=== PATIENT | female | born 1960 | race Two or more races ===

== ENCOUNTER 2020-08-17 03:58 | Emergency (ER) | payer OTHER ==
[2020-08-17 04:14] VITALS: PULSE 74; TEMP 97.4; BMI 31.8
[2020-08-17 04:43] VITALS: BP 160/78
[2020-08-17 05:40] LABS: URINE APPEARANCE TURBID; URINE BILIRUBIN SMALL (NEGATIVE); URINE COLOR RED; URINE GLUCOSE (UA) NEGATIVE (NEGATIVE); URINE KETONE NEGATIVE (NEGATIVE); URINE PROTEIN 100 (NEGATIVE)
[2020-08-17 05:41] LABS: HYALINE CASTS 244.03 /uL (0-3.1); URINE BACTERIA 1336.4 /uL (0-1359); URINE LEUK ESTERASE 3+ (NEGATIVE); URINE NITRITE POSITIVE (NEGATIVE); URINE RBC 33056.3 /uL (0-23.9)
[2020-08-17 05:42] LABS: URINE WBC 3089.4 /uL (0-25.8)
[2020-08-17] MEDS ORDERED: CIPROFLOXACIN 500 MG TABLET (RESTRICTED TO ID) PO ONE (06:18)
[2020-08-17] MEDS ORDERED: CIPROFLOXACIN 250 MG TABLET (RESTRICTED TO ID) PO ONE (06:20)
== END 2020-08-17 06:25 | disposition home or self-care (01) ==
LOC: FER 03:58
DX: N39.0 Urinary tract infection, site not specified (principal)
CPT/HCPCS: 81003; 87086; 87186; 99283-25

== ENCOUNTER 2021-06-25 08:43 | Inpatient (IN) | payer OTHER ==
[2021-06-25] MEDS ORDERED: ACETAMINOPHEN 1000 MG/100 ML VIAL IVPB ONE (09:27)
[2021-06-25] MEDS ORDERED: ACETAMINOPHEN INJECTION 100 ML IVPB ONE (09:33)
[2021-06-25 09:59] LABS: BASO % 3.1 % (0-2.0); BILIRUBIN,TOTAL 0.7 mg/dl (0.2-1); CALCIUM 9.5 mg/dl (8.5-10); CREATININE 0.7 mg/dl (0.55-1.3); EOS % 0.4 % (0-4.5); HEMATOCRIT 34.8 % (32.4-45.2); HEMOGLOBIN 11.4 GM/dl (10.7-15.3); LYMPH % 8.2 % (8-40); MCH 28.7 pg (25.7-33.7); MCHC 32.9 g/dl (32.0-36.0); MEAN CELL VOLUME 87.3 fl (80-96); MEAN PLT VOLUME 9.9 fl (7.5-11.1); MONO % 3.9 % (3.8-10.2); NEUT % 84.4 % (42.8-82.8); PLATELET COUNT 298 10^3/uL (134-434); RBC 3.98 M/mm3 (3.60-5.2); RDW 12.5 % (11.6-15.6); WHITE BLOOD COUNT 11.3 K/mm3 (4.0-10.8)
[2021-06-25] MEDS ORDERED: morphine CARPU-JECT 2 MG/1 ML DISP.SYRIN IVPUSH ONE (10:03)
[2021-06-25] MEDS ORDERED: morphine SULFATE 4 MG/ML VIAL ONE ×4 (10:05→16:06)
[2021-06-25] MEDS ORDERED: ONDANSETRON 4 MG/2 ML VIAL IVPUSH ONE (11:14)
[2021-06-25] MEDS ORDERED: morphine CARPU-JECT 4 MG/1 ML DISP.SYRIN IVPUSH ONE ×3 (11:15→15:51)
[2021-06-25] MEDS ORDERED: ONDANSETRON 4 MG/2 ML VIAL ONE (11:16)
[2021-06-25] MEDS ORDERED: MEROPENEM 1 GM in DEXTROSE 5%-WATER 100 ML IVPB ONE (12:30)
[2021-06-25] MEDS ORDERED: BISACODYL 10 MG SUPP.RECT PR ONE (18:19)
[2021-06-25] MEDS ORDERED: ACETAMINOPHEN 1000 MG/100 ML VIAL IVPB PRN (18:21)
[2021-06-25] MEDS: ENOXAPARIN NA (PORCINE) 40 MG/0.4 ML DISP.SYRIN SQ SCH (19:00)
[2021-06-25] MEDS: HYDROmorphone HCl 2 MG/ML VIAL IVPUSH PRN (19:00)
[2021-06-25] MEDS: SODIUM CHLORIDE 0.9%/KCL 20 MEQ/1,000 ML INFUS.BAG IV SCH (21:00)
[2021-06-25] MEDS ORDERED: ROSUVASTATIN CA 10 MG TABLET (FP) PO SCH (22:00)
[2021-06-25] MEDS: INSULIN (NOVOLOG) ASPART 100 UNITS/ML 10ML VIAL SQ SCH (22:03)
[2021-06-26] MEDS: HYDROmorphone HCl 2 MG/ML VIAL IVPUSH PRN (02:11)
[2021-06-26] MEDS: INSULIN (NOVOLOG) ASPART 100 UNITS/ML 10ML VIAL SQ SCH ×4 (06:06→21:17)
[2021-06-26 09:23] LABS: HEMATOCRIT 43.9 % (32.4-45.2); HEMOGLOBIN 14.4 GM/dL (10.7-15.3); MCH 28.5 pg (25.7-33.7); MCHC 32.8 g/dl (32.0-36.0); MEAN CELL VOLUME 87.1 fl (80-96); MEAN PLT VOLUME 9.6 fl (7.5-11.1); PLATELET COUNT 365 10^3/uL (134-434); RBC 5.04 M/mm3 (3.60-5.2); RDW 14.1 % (11.6-15.6); WHITE BLOOD COUNT 17.7 K/mm3 (4.0-10.0)
[2021-06-26 10:02] LABS: BILIRUBIN,TOTAL 0.9 mg/dL (0.2-1); TOT PROT 6.8 g/dl (6.4-8.2)
[2021-06-26 10:04] LABS: ALBUMIN 3.4 g/dl (3.4-5.0); BLOOD UREA NITROGEN 23.8 mg/dL (7-18); CALCIUM 9.4 mg/dL (8.5-10.1)
[2021-06-26 10:25] LABS: ANISOCYTOSIS 0; MACROCYTOSIS 0; PLATELET ESTIMATE NORMAL
[2021-06-26] MEDS: HYDROmorphone HCl 2 MG/ML VIAL IVPB PRN ×2 (12:06→21:41)
[2021-06-26] MEDS: ENOXAPARIN NA (PORCINE) 40 MG/0.4 ML DISP.SYRIN SQ SCH (12:11)
[2021-06-26] MEDS: SODIUM CHLORIDE 0.9%/KCL 20 MEQ/1,000 ML INFUS.BAG IV SCH (12:11)
[2021-06-26] MEDS: LACTATED RINGERS SOLUTION 1,000 ML/1,000 ML INFUS.BAG IV SCH (15:58)
[2021-06-26] MEDS ORDERED: DEXTROSE 5%-WATER 100 ML IVPB ONE (17:33)
[2021-06-26] MEDS ORDERED: MEROPENEM 1 GM VIAL (RESTRICTED TO ID) IVPB ONE (17:33)
[2021-06-26] MEDS: MEROPENEM 1 GM in DEXTROSE 5%-WATER 100 ML IVPB SCH (18:32)
[2021-06-26] MEDS ORDERED: ONDANSETRON 4 MG/2 ML VIAL IVPUSH ONE (18:50)
[2021-06-26 20:43] LABS: HEMATOCRIT 37.6 % (32.4-45.2); HEMOGLOBIN 12.5 GM/dL (10.7-15.3); MCH 28.6 pg (25.7-33.7); MCHC 33.1 g/dl (32.0-36.0); MEAN CELL VOLUME 86.5 fl (80-96); MEAN PLT VOLUME 8.9 fl (7.5-11.1); PLATELET COUNT 305 10^3/uL (134-434); RBC 4.35 M/mm3 (3.60-5.2); RDW 13.7 % (11.6-15.6); WHITE BLOOD COUNT 22.2 K/mm3 (4.0-10.0)
[2021-06-26 21:00] LABS: CALCIUM 8.7 mg/dL (8.5-10.1)
[2021-06-26 21:01] LABS: BLOOD UREA NITROGEN 25.6 mg/dL (7-18)
[2021-06-26 21:04] LABS: CREATININE 0.8 mg/dL (0.55-1.3)
[2021-06-26 21:05] LABS: BILIRUBIN,TOTAL 0.6 mg/dL (0.2-1); TOT PROT 6.2 g/dl (6.4-8.2)
[2021-06-27] MEDS ORDERED: DEXTROSE 5%-WATER 100 ML IVPB ONE ×3 (01:27→17:24)
[2021-06-27] MEDS ORDERED: MEROPENEM 1 GM VIAL (RESTRICTED TO ID) IVPB ONE ×3 (01:27→17:24)
[2021-06-27] MEDS: MEROPENEM 1 GM in DEXTROSE 5%-WATER 100 ML IVPB SCH ×3 (01:54→17:38)
[2021-06-27] MEDS: LACTATED RINGERS SOLUTION 1,000 ML/1,000 ML INFUS.BAG IV SCH ×2 (05:28→13:07)
[2021-06-27] MEDS: HYDROmorphone HCl 2 MG/ML VIAL IVPB PRN ×3 (06:29→21:16)
[2021-06-27] MEDS: INSULIN (NOVOLOG) ASPART 100 UNITS/ML 10ML VIAL SQ SCH ×4 (06:34→21:12)
[2021-06-27 09:44] LABS: HEMATOCRIT 34.6 % (32.4-45.2); HEMOGLOBIN 11.5 GM/dL (10.7-15.3); MCHC 33.2 g/dl (32.0-36.0); MEAN CELL VOLUME 87.1 fl (80-96); MEAN PLT VOLUME 9.5 fl (7.5-11.1); PLATELET COUNT 279 10^3/uL (134-434); RBC 3.98 M/mm3 (3.60-5.2); RDW 13.7 % (11.6-15.6); WHITE BLOOD COUNT 21.6 K/mm3 (4.0-10.0)
[2021-06-27 09:46] LABS: INR 1.34 (0.83-1.09); PROTHROMBIN TIME (PATIENT) 15.1 SEC (9.7-13.0)
[2021-06-27 10:26] LABS: BLOOD UREA NITROGEN 23.8 mg/dL (7-18)
[2021-06-27 10:28] LABS: CREATININE 0.7 mg/dL (0.55-1.3)
[2021-06-27 10:29] LABS: BILIRUBIN,TOTAL 0.7 mg/dL (0.2-1); TOT PROT 5.9 g/dl (6.4-8.2)
[2021-06-27] MEDS: ENOXAPARIN NA (PORCINE) 40 MG/0.4 ML DISP.SYRIN SQ SCH (10:38)
[2021-06-27 10:52] LABS: ANISOCYTOSIS 1+; MACROCYTOSIS 0; PLATELET ESTIMATE NORMAL
[2021-06-27 11:36] LABS: ALBUMIN 2.6 g/dl (3.4-5.0)
[2021-06-27] MEDS ORDERED: PHYTONADIONE 10 MG/1 ML AMP IVPB ONE (13:00)
[2021-06-27] MEDS ORDERED: ACETAMINOPHEN 1000 MG/100 ML VIAL IVPB ONE (13:00)
[2021-06-28] MEDS ORDERED: MEROPENEM 1 GM VIAL (RESTRICTED TO ID) IVPB ONE ×3 (00:50→18:25)
[2021-06-28] MEDS ORDERED: DEXTROSE 5%-WATER 100 ML IVPB ONE ×3 (00:50→18:25)
[2021-06-28] MEDS: LACTATED RINGERS SOLUTION 1,000 ML/1,000 ML INFUS.BAG IV SCH ×3 (01:00→23:37)
[2021-06-28] MEDS: MEROPENEM 1 GM in DEXTROSE 5%-WATER 100 ML IVPB SCH ×3 (02:00→18:37)
[2021-06-28] MEDS: HYDROmorphone HCl 2 MG/ML VIAL IVPB PRN ×4 (02:42→20:23)
[2021-06-28] MEDS: INSULIN (NOVOLOG) ASPART 100 UNITS/ML 10ML VIAL SQ SCH ×4 (05:59→21:14)
[2021-06-28 09:11] LABS: BASO % 0.1 % (0-2.0); EOS % 0.1 % (0-4.5); HEMATOCRIT 29.6 % (32.4-45.2); LYMPH % 5.8 % (8-40); MCH 29.4 pg (25.7-33.7); MCHC 33.7 g/dl (32.0-36.0); MEAN CELL VOLUME 87.3 fl (80-96); MEAN PLT VOLUME 9.6 fl (7.5-11.1); MONO % 5.5 % (3.8-10.2); NEUT % 88.5 % (42.8-82.8); PLATELET COUNT 215 10^3/uL (134-434); RBC 3.39 M/mm3 (3.60-5.2); RDW 13.4 % (11.6-15.6); WHITE BLOOD COUNT 16.9 K/mm3 (4.0-10.0)
[2021-06-28 09:13] LABS: INR 1.19 (0.83-1.09)
[2021-06-28 10:09] LABS: BLOOD UREA NITROGEN 15.4 mg/dL (7-18); CALCIUM 8.6 mg/dL (8.5-10.1)
[2021-06-28 10:11] LABS: ALBUMIN 2.2 g/dl (3.4-5.0)
[2021-06-28 10:12] LABS: CREATININE 0.5 mg/dL (0.55-1.3)
[2021-06-28 10:13] LABS: TOT PROT 5.3 g/dl (6.4-8.2)
[2021-06-28 10:14] LABS: BILIRUBIN,TOTAL 0.6 mg/dL (0.2-1)
[2021-06-28] MEDS: ENOXAPARIN NA (PORCINE) 40 MG/0.4 ML DISP.SYRIN SQ SCH (10:15)
[2021-06-29] MEDS ORDERED: DEXTROSE 5%-WATER 100 ML IVPB ONE ×3 (00:49→17:09)
[2021-06-29] MEDS ORDERED: MEROPENEM 1 GM VIAL (RESTRICTED TO ID) IVPB ONE ×3 (00:49→17:09)
[2021-06-29] MEDS: HYDROmorphone HCl 2 MG/ML VIAL IVPB PRN ×2 (00:57→06:00)
[2021-06-29] MEDS: MEROPENEM 1 GM in DEXTROSE 5%-WATER 100 ML IVPB SCH ×3 (01:16→17:19)
[2021-06-29] MEDS: LACTATED RINGERS SOLUTION 1,000 ML/1,000 ML INFUS.BAG IV SCH ×2 (06:01→11:40)
[2021-06-29] MEDS: INSULIN (NOVOLOG) ASPART 100 UNITS/ML 10ML VIAL SQ SCH ×4 (06:07→21:17)
[2021-06-29 10:10] LABS: BASO % 0.3 % (0-2.0); EOS % 0.7 % (0-4.5); HEMATOCRIT 30.7 % (32.4-45.2); HEMOGLOBIN 10.5 GM/dL (10.7-15.3); LYMPH % 6.9 % (8-40); MCH 29.7 pg (25.7-33.7); MCHC 34.1 g/dl (32.0-36.0); MEAN CELL VOLUME 87.1 fl (80-96); MEAN PLT VOLUME 9.6 fl (7.5-11.1); MONO % 6.5 % (3.8-10.2); NEUT % 85.6 % (42.8-82.8); PLATELET COUNT 239 10^3/uL (134-434); RBC 3.53 M/mm3 (3.60-5.2); WHITE BLOOD COUNT 14.3 K/mm3 (4.0-10.0)
[2021-06-29 10:18] LABS: INR 1.23 (0.83-1.09); PROTHROMBIN TIME (PATIENT) 13.8 SEC (9.7-13.0)
[2021-06-29 10:47] LABS: ALBUMIN 2.3 g/dl (3.4-5.0); BLOOD UREA NITROGEN 11.4 mg/dL (7-18); CALCIUM 8.2 mg/dL (8.5-10.1)
[2021-06-29 10:50] LABS: CREATININE 0.4 mg/dL (0.55-1.3)
[2021-06-29 10:52] LABS: BILIRUBIN,TOTAL 0.5 mg/dL (0.2-1); TOT PROT 5.4 g/dl (6.4-8.2)
[2021-06-29] MEDS ORDERED: LACTATED RINGERS SOLUTION 1,000 ML/1,000 ML INFUS.BAG IV SCH ×3 (13:24→21:00)
[2021-06-29] MEDS ORDERED: LABETALOL HCL 5 MG/1 ML (100MG/20 ML VIAL) ONE (13:26)
[2021-06-29] MEDS: morphine SULFATE 4 MG/ML VIAL IVPUSH PRN ×2 (16:33→22:32)
[2021-06-30] MEDS ORDERED: LACTATED RINGERS SOLUTION 1,000 ML/1,000 ML INFUS.BAG IV SCH ×2 (00:02→05:00)
[2021-06-30] MEDS ORDERED: MEROPENEM 1 GM VIAL (RESTRICTED TO ID) IVPB ONE ×3 (01:07→17:22)
[2021-06-30] MEDS ORDERED: DEXTROSE 5%-WATER 100 ML IVPB ONE ×3 (01:08→17:22)
[2021-06-30] MEDS: MEROPENEM 1 GM in DEXTROSE 5%-WATER 100 ML IVPB SCH ×3 (01:13→17:44)
[2021-06-30] MEDS ORDERED: HYDROmorphone HCl 2 MG/ML VIAL IVPB ONE (01:54)
[2021-06-30] MEDS: LACTATED RINGERS SOLUTION 1,000 ML/1,000 ML INFUS.BAG IV SCH ×2 (05:11→23:00)
[2021-06-30] MEDS: INSULIN (NOVOLOG) ASPART 100 UNITS/ML 10ML VIAL SQ SCH ×4 (06:26→22:48)
[2021-06-30 08:12] LABS: BASO % 0.1 % (0-2.0); EOS % 0.8 % (0-4.5); HEMATOCRIT 29.5 % (32.4-45.2); HEMOGLOBIN 9.9 GM/dL (10.7-15.3); LYMPH % 8.4 % (8-40); MCH 28.9 pg (25.7-33.7); MCHC 33.6 g/dl (32.0-36.0); MEAN CELL VOLUME 86.1 fl (80-96); MEAN PLT VOLUME 8.5 fl (7.5-11.1); MONO % 7.4 % (3.8-10.2); NEUT % 83.3 % (42.8-82.8); PLATELET COUNT 258 10^3/uL (134-434); RBC 3.42 M/mm3 (3.60-5.2); RDW 13.3 % (11.6-15.6); WHITE BLOOD COUNT 11.7 K/mm3 (4.0-10.0)
[2021-06-30 08:19] LABS: BLOOD UREA NITROGEN 9.4 mg/dL (7-18); CREATININE 0.5 mg/dL (0.55-1.3)
[2021-06-30 08:20] LABS: TOT PROT 5.2 g/dl (6.4-8.2)
[2021-06-30 08:22] LABS: CALCIUM 8.2 mg/dL (8.5-10.1)
[2021-06-30 08:23] LABS: BILIRUBIN,TOTAL 0.7 mg/dL (0.2-1); MAGNESIUM 1.8 mg/dL (1.8-2.4)
[2021-06-30] MEDS: HYDROmorphone HCl 2 MG/ML VIAL IVPB PRN ×2 (10:31→20:22)
[2021-06-30] MEDS ORDERED: ONDANSETRON 4 MG/2 ML VIAL IVPUSH PRN (10:59)
[2021-06-30] MEDS ORDERED: LOSARTAN POTASSIUM 25 MG TABLET PO SCH (11:15)
[2021-06-30] MEDS ORDERED: LOSARTAN POTASSIUM 25 MG TABLET PO ONE (17:41)
[2021-07-01] MEDS ORDERED: MELATONIN 5 MG TABLETS PO ONE (00:11)
[2021-07-01] MEDS ORDERED: DEXTROSE 5%-WATER 100 ML IVPB ONE ×3 (01:07→16:21)
[2021-07-01] MEDS ORDERED: MEROPENEM 1 GM VIAL (RESTRICTED TO ID) IVPB ONE ×3 (01:07→16:21)
[2021-07-01] MEDS: MEROPENEM 1 GM in DEXTROSE 5%-WATER 100 ML IVPB SCH ×3 (01:17→17:00)
[2021-07-01] MEDS: HYDROmorphone HCl 2 MG/ML VIAL IVPB PRN (04:03)
[2021-07-01] MEDS: LACTATED RINGERS SOLUTION 1,000 ML/1,000 ML INFUS.BAG IV SCH (06:13)
[2021-07-01] MEDS: INSULIN (NOVOLOG) ASPART 100 UNITS/ML 10ML VIAL SQ SCH ×4 (06:13→22:31)
[2021-07-01 06:52] LABS: BASO % 0.2 % (0-2.0); EOS % 2.3 % (0-4.5); HEMATOCRIT 27.5 % (32.4-45.2); HEMOGLOBIN 9.3 GM/dL (10.7-15.3); LYMPH % 8.9 % (8-40); MCH 29.1 pg (25.7-33.7); MCHC 33.7 g/dl (32.0-36.0); MEAN CELL VOLUME 86.3 fl (80-96); MEAN PLT VOLUME 8.2 fl (7.5-11.1); MONO % 9.2 % (3.8-10.2); NEUT % 79.4 % (42.8-82.8); PLATELET COUNT 243 10^3/uL (134-434); RBC 3.19 M/mm3 (3.60-5.2); RDW 13.4 % (11.6-15.6); WHITE BLOOD COUNT 10.6 K/mm3 (4.0-10.0)
[2021-07-01 07:14] LABS: ALBUMIN 1.8 g/dl (3.4-5.0); BLOOD UREA NITROGEN 7.8 mg/dL (7-18); CALCIUM 8.3 mg/dL (8.5-10.1)
[2021-07-01 07:15] LABS: MAGNESIUM 1.8 mg/dL (1.8-2.4)
[2021-07-01 07:16] LABS: CREATININE 0.4 mg/dL (0.55-1.3)
[2021-07-01 07:18] LABS: BILIRUBIN,TOTAL 0.7 mg/dL (0.2-1); TOT PROT 4.9 g/dl (6.4-8.2)
[2021-07-01] MEDS ORDERED: LOSARTAN POTASSIUM 50 MG TABLET PO SCH (10:00)
[2021-07-01] MEDS ORDERED: POTASSIUM CHLORIDE TABS 20 MEQ TABLET.ER (FP) PO ONE (14:58)
[2021-07-01] MEDS ORDERED: FUROSEMIDE 40 MG/4 ML INJECTABLE VIAL IVPUSH ONE ×2 (15:08→16:00)
[2021-07-01] MEDS ORDERED: LOSARTAN POTASSIUM 50 MG TABLET PO ONE (16:00)
[2021-07-01] MEDS ORDERED: PT OWN MED DRAWER 7, Y5N ONE (16:23)
[2021-07-01 20:52] LABS: CALCIUM 8.3 mg/dL (8.5-10.1)
[2021-07-01 20:53] LABS: BLOOD UREA NITROGEN 6.7 mg/dL (7-18)
[2021-07-01 20:56] LABS: CREATININE 0.5 mg/dL (0.55-1.3)
[2021-07-01] MEDS: KCL 10 MEQ IVPB 10 MEQ/100 ML INFUS.BAG IVPB SCH (22:35)
[2021-07-02] MEDS ORDERED: ACETAMINOPHEN 325 MG TABLET (FP) PO ONE (01:20)
[2021-07-02] MEDS ORDERED: DEXTROSE 5%-WATER 100 ML IVPB ONE ×3 (01:40→17:41)
[2021-07-02] MEDS ORDERED: MEROPENEM 1 GM VIAL (RESTRICTED TO ID) IVPB ONE ×4 (01:40→19:14)
[2021-07-02] MEDS: MEROPENEM 1 GM in DEXTROSE 5%-WATER 100 ML IVPB SCH ×3 (02:00→17:43)
[2021-07-02] MEDS: KCL 10 MEQ IVPB 10 MEQ/100 ML INFUS.BAG IVPB SCH ×2 (02:05→12:21)
[2021-07-02] MEDS ORDERED: POTASSIUM CHLORIDE TABS 20 MEQ TABLET.ER (FP) PO ONE (02:24)
[2021-07-02] MEDS: INSULIN (NOVOLOG) ASPART 100 UNITS/ML 10ML VIAL SQ SCH ×3 (06:26→17:26)
[2021-07-02] MEDS ORDERED: BUPIVACAINE HCL/PF 0.5% (5MG/ML) 10 ML VIAL IJ ONE ×3 (07:16→19:16)
[2021-07-02 07:19] LABS: BASO % 0.3 % (0-2.0); EOS % 2.5 % (0-4.5); HEMATOCRIT 27.6 % (32.4-45.2); HEMOGLOBIN 9.5 GM/dL (10.7-15.3); LYMPH % 15.1 % (8-40); MCH 29.5 pg (25.7-33.7); MCHC 34.4 g/dl (32.0-36.0); MEAN CELL VOLUME 85.8 fl (80-96); MONO % 9.9 % (3.8-10.2); NEUT % 72.2 % (42.8-82.8); PLATELET COUNT 298 10^3/uL (134-434); RBC 3.21 M/mm3 (3.60-5.2); RDW 13.5 % (11.6-15.6); WHITE BLOOD COUNT 7.5 K/mm3 (4.0-10.0)
[2021-07-02 08:07] LABS: CALCIUM 8.6 mg/dL (8.5-10.1)
[2021-07-02 08:08] LABS: BLOOD UREA NITROGEN 6.6 mg/dL (7-18); MAGNESIUM 1.8 mg/dL (1.8-2.4)
[2021-07-02 08:11] LABS: CREATININE 0.4 mg/dL (0.55-1.3)
[2021-07-02 08:13] LABS: BILIRUBIN,TOTAL 0.6 mg/dL (0.2-1); LIPASE 183 U/L (73-393)
[2021-07-02 08:14] LABS: AMYLASE 25 U/L (25-115)
[2021-07-02] MEDS ORDERED: ANASTROZOLE 1 MG TABLET PO SCH (10:00)
[2021-07-02] MEDS ORDERED: amLODIPine BESYLATE 5 MG TABLET (FP) PO SCH (10:00)
[2021-07-02] MEDS ORDERED: LOSARTAN POTASSIUM 50 MG TABLET PO SCH (10:00)
[2021-07-02] MEDS ORDERED: POTASSIUM CHLORIDE ORAL LIQUID 20 MEQ/15 ML PO ONE (12:20)
[2021-07-02] MEDS ORDERED: ROCURONIUM BROMIDE 50 MG/5 ML SYRINGE ONE (18:15)
[2021-07-02] MEDS ORDERED: PROPOFOL 20 ML ONE (18:15)
[2021-07-02] MEDS ORDERED: MIDAZOLAM HCL 2 MG/2 ML SINGLE DOSE VIAL ONE (18:15)
[2021-07-02] MEDS ORDERED: fentaNYL CITRATE 250 MCG/5 ML VIAL ONE (18:15)
[2021-07-02] MEDS ORDERED: LACTATED RINGERS SOLUTION 1,000 ML IV SCH ×2 (18:30→20:35)
[2021-07-02] MEDS ORDERED: NEOSTIGMINE METHYLSULFATE 0.5 MG/ML - 10 ML MDV ONE (20:03)
[2021-07-02] MEDS ORDERED: GLYCOPYRROLATE 0.2 MG/1 ML VIAL ONE (20:09)
[2021-07-02] MEDS ORDERED: METOPROLOL TARTRATE 5 MG/5 ML VIAL ONE (20:12)
[2021-07-02] MEDS ORDERED: oxyCODONE HCL 5 MG TABLET PO PRN (20:33)
[2021-07-02] MEDS ORDERED: HYDROmorphone HCl 2 MG/ML VIAL IVPB PRN (20:35)
[2021-07-02] MEDS ORDERED: ONDANSETRON 4 MG/2 ML VIAL IVPUSH PRN (20:35)
[2021-07-02 21:19] LABS: BLOOD UREA NITROGEN 7.6 mg/dL (7-18); CALCIUM 8.5 mg/dL (8.5-10.1)
[2021-07-02 21:23] LABS: CREATININE 0.4 mg/dL (0.55-1.3)
[2021-07-03] MEDS: INSULIN (NOVOLOG) ASPART 100 UNITS/ML 10ML VIAL SQ SCH ×5 (00:02→22:04)
[2021-07-03] MEDS ORDERED: ACETAMINOPHEN 500 MG TABLET (FP) PO PRN (02:00)
[2021-07-03] MEDS ORDERED: MEROPENEM 1 GM VIAL (RESTRICTED TO ID) IVPB ONE ×3 (08:45→18:09)
[2021-07-03] MEDS ORDERED: POTASSIUM CHLORIDE TABS 20 MEQ TABLET.ER (FP) PO ONE (08:45)
[2021-07-03] MEDS ORDERED: DEXTROSE 5%-WATER 100 ML IVPB ONE ×3 (08:45→18:09)
[2021-07-03] MEDS ORDERED: PT OWN MED DRAWER 7, Y5N ONE (08:46)
[2021-07-03] MEDS: LOSARTAN POTASSIUM 50 MG TABLET PO SCH (09:18)
[2021-07-03] MEDS: amLODIPine BESYLATE 5 MG TABLET (FP) PO SCH (09:18)
[2021-07-03] MEDS: MEROPENEM 1 GM in DEXTROSE 5%-WATER 100 ML IVPB SCH ×2 (09:18→18:29)
[2021-07-03] MEDS: ANASTROZOLE 1 MG TABLET PO SCH (09:18)
[2021-07-03] MEDS: HEPARIN NA (PORCINE) 5,000 UNITS/ML 1ML VIAL SQ SCH ×2 (09:19→21:58)
[2021-07-03] MEDS: ACETAMINOPHEN 500 MG TABLET (FP) PO SCH ×2 (10:34→16:58)
[2021-07-03] MEDS: KETOROLAC TROMETHAMINE 30 MG/1 ML VIAL IVPUSH SCH ×2 (11:03→18:44)
[2021-07-03] MEDS: D5-1/2NS+40 MEQ KCL - 40 MEQ/1,000 ML INFUS.BAG IV SCH (11:05)
[2021-07-03] MEDS ORDERED: METOPROLOL TARTRATE 25 MG TABLET (FP) PO SCH (14:45)
[2021-07-03 15:36] VITALS: BMI 34.0
[2021-07-03] MEDS: metoPROLOL SUCCINATE 25 MG TAB.SR.24H (FP) PO SCH (16:20)
[2021-07-03] MEDS ORDERED: FAMOTIDINE 20 MG/50 ML IVPB 20 MG/50 ML MG IVPB ONE (21:56)
[2021-07-04] MEDS: ACETAMINOPHEN 500 MG TABLET (FP) PO SCH ×3 (00:25→16:12)
[2021-07-04] MEDS ORDERED: MEROPENEM 1 GM VIAL (RESTRICTED TO ID) IVPB ONE ×2 (02:33→08:27)
[2021-07-04] MEDS ORDERED: DEXTROSE 5%-WATER 100 ML IVPB ONE ×2 (02:34→08:27)
[2021-07-04] MEDS: KETOROLAC TROMETHAMINE 30 MG/1 ML VIAL IVPUSH SCH (02:50)
[2021-07-04] MEDS: MEROPENEM 1 GM in DEXTROSE 5%-WATER 100 ML IVPB SCH ×2 (02:59→11:31)
[2021-07-04] MEDS: INSULIN (NOVOLOG) ASPART 100 UNITS/ML 10ML VIAL SQ SCH ×3 (06:48→17:12)
[2021-07-04] MEDS ORDERED: INSULIN (LEVEMIR) 100 UNITS/ML UNITS SQ SCH (07:00)
[2021-07-04] MEDS: D5-1/2NS+40 MEQ KCL - 40 MEQ/1,000 ML INFUS.BAG IV SCH (07:16)
[2021-07-04] MEDS ORDERED: PT OWN MED DRAWER 7, Y5N ONE ×4 (08:32→12:58)
[2021-07-04] MEDS ORDERED: HYDROCHLOROTHIAZIDE 25 MG TABLET (FP) PO SCH (10:00)
[2021-07-04] MEDS: HEPARIN NA (PORCINE) 5,000 UNITS/ML 1ML VIAL SQ SCH (11:19)
[2021-07-04] MEDS: metoPROLOL SUCCINATE 25 MG TAB.SR.24H (FP) PO SCH (11:19)
[2021-07-04] MEDS: amLODIPine BESYLATE 5 MG TABLET (FP) PO SCH (12:35)
[2021-07-04] MEDS: LOSARTAN POTASSIUM 50 MG TABLET PO SCH (12:35)
[2021-07-04 13:05] LABS: BASO % 0.7 % (0-2.0); EOS % 4.5 % (0-4.5); HEMOGLOBIN 9.9 GM/dL (10.7-15.3); LYMPH % 17.1 % (8-40); MCH 28.9 pg (25.7-33.7); MCHC 33.2 g/dl (32.0-36.0); MEAN CELL VOLUME 86.9 fl (80-96); MONO % 7.8 % (3.8-10.2); NEUT % 69.9 % (42.8-82.8); PLATELET COUNT 376 10^3/uL (134-434); RBC 3.45 M/mm3 (3.60-5.2); RDW 13.7 % (11.6-15.6); WHITE BLOOD COUNT 7.3 K/mm3 (4.0-10.0)
[2021-07-04] MEDS: ANASTROZOLE 1 MG TABLET PO SCH (13:21)
[2021-07-04 13:53] LABS: ALBUMIN 2.2 g/dl (3.4-5.0); BLOOD UREA NITROGEN 12.2 mg/dL (7-18)
[2021-07-04 13:56] LABS: CREATININE 0.6 mg/dL (0.55-1.3)
[2021-07-04 13:58] LABS: BILIRUBIN,TOTAL 0.7 mg/dL (0.2-1)
[2021-07-04 13:59] LABS: TOT PROT 5.4 g/dl (6.4-8.2)
[2021-07-04 15:19] VITALS: BP 156/78; PULSE 98; TEMP 97.5
== END 2021-07-04 18:33 | disposition home or self-care (01) | DRG 418 ==
LOC: FER 08:43 → J6S 17:50 → J4W 06-29 23:55
PROVIDERS: ADMIT Family Medicine; ATTEND Family Medicine
PROC: 0FC98ZZ Extirpation of Matter from Common Bile Duct, Via Natural or Artificial Opening Endoscopic (ICD-10-PCS; 2021-06-29)
PROC: BF130ZZ Fluoroscopy of Gallbladder and Bile Ducts using High Osmolar Contrast (ICD-10-PCS; 2021-06-29)
PROC: 0FT44ZZ Resection of Gallbladder, Percutaneous Endoscopic Approach (ICD-10-PCS; principal; 2021-07-02 16:00)
DX: K85.10 Biliary acute pancreatitis without necrosis or infection (principal); K80.41 Calculus of bile duct with cholecystitis, unspecified, with obstruction; K59.00 Constipation, unspecified; E11.9 Type 2 diabetes mellitus without complications; R19.7 Diarrhea, unspecified; E83.42 Hypomagnesemia; D72.829 Elevated white blood cell count, unspecified; I10 Essential (primary) hypertension; E66.9 Obesity, unspecified; Z68.34 Body mass index [BMI] 34.0-34.9, adult; E03.9 Hypothyroidism, unspecified; E78.5 Hyperlipidemia, unspecified; K76.0 Fatty (change of) liver, not elsewhere classified
CPT/HCPCS: 36415; 71046-TC-FY; 74177-TC; 74181-TC; 76705-TC; 80048; 80053; 80061; 81003; 82150; 82550; 82962; 83036; 83690; 83735; 84443; 84484; 85025; 85610; 86140; 86850; 86900; 86901; 87040; 87045; 87046; 87324; 87449; 88304-TC; 93005; 93010; 93306-TC; 94010; 94760; 99285-25; C9803; J0131; J1644; Q9967; U0003; U0005

== ENCOUNTER 2022-03-01 03:24 | Emergency (ER) | payer OTHER ==
[2022-03-01 03:42] VITALS: BP 136/69; PULSE 74; RESP 16; TEMP 98; BMI 34.0
[2022-03-01 04:36] LABS: EPI CELLS 11 /uL (0-25.1); HYALINE CASTS 2 /uL (0-3.1); PH,URINE 5.5 (5.0-8.0); URINE APPEARANCE TURBID; URINE BACTERIA 703 /uL (0-1359); URINE BILIRUBIN NEGATIVE (NEGATIVE); URINE COLOR ORANGE; URINE GLUCOSE (UA) NEGATIVE (NEGATIVE); URINE KETONE NEGATIVE (NEGATIVE); URINE LEUK ESTERASE 3+ (NEGATIVE); URINE NITRITE NEGATIVE (NEGATIVE); URINE PROTEIN 3+ (NEGATIVE); URINE RBC 17712 /uL (0-23.9); URINE WBC 4097 /uL (0-25.8)
[2022-03-01] MEDS ORDERED: SULFAMETHOXAZOLE/TRIMETHOPRIM 800MG/160MG D.S. TABLET PO ONE (04:43)
[2022-03-01] MEDS ORDERED: SULFAMETHOXAZOLE/TRIMETHOPRIM 800MG/160MG D.S. TABLET ONE (04:52)
== END 2022-03-01 04:54 | disposition home or self-care (01) ==
LOC: FER 03:24
DX: N39.0 Urinary tract infection, site not specified (principal); R22.43 Localized swelling, mass and lump, lower limb, bilateral
CPT/HCPCS: 81003; 87086; 87186; 99283-25